=== PATIENT | female | born 1990 | race Caucasian/White ===

== ENCOUNTER → 2017-09-12 | Outpatient (CLI) | payer OTHER ==
--- NOTE | 2017-09-12 14:03 | RADIOLOGY REPORT PS360 ---
FOOT-LT-3 VIEWS HISTORY: LT HEEL PAIN ORDERING PHYSICIAN: Paul Benson MD PATIENT AGE: 27 years COMPARISON: None FINDINGS: No fracture or dislocation. No lytic or blastic change. There is normal mineralization.. The joint spaces are well-preserved. No significant degenerative/arthritic changes. No erosive changes evident. No calcaneal spur or radio opaque foreign body IMPRESSION: Negative left foot, no acute finding
== END ==
LOC: RAD 11:06
DX: M79.672 Pain in left foot (principal)